=== PATIENT | female | born 1960 | race Caucasian/White ===

== ENCOUNTER 2019-11-04 10:24 | Observation (INO) | payer OTHER, SELFPAY ==
[2019-11-04] VITALS (8 sets, daily range): BP systolic 114–146; BP diastolic 59–92; PULSE 70–90; RESP 14–18; TEMP 36.2–36.9; O2SAT 96–100; BMI 34.2; BMI 34.0
--- NOTE | 2019-11-04 10:48 | EKG12_ITS ---
Test Reason : CP Blood Pressure : / mmHG Vent. Rate : 070 BPM Atrial Rate : 070 BPM P-R Int : 166 ms QRS Dur : 092 ms QT Int : 402 ms P-R-T Axes : 019 044 004 degrees QTc Int : 434 ms Normal sinus rhythm ST & T wave abnormality, consider inferior ischemia Abnormal ECG Confirmed by LETA SPEARS ([id number]), scientific publications editor RENATA MORALES ([id number]) on 11/06/2019 7:39:51 AM Referred By: JEANA Confirmed By:LETA SPEARS
--- NOTE | 2019-11-04 10:49 | ED.VIS.CHEST ---
History of Present Illness Chief Complaint: Chest Pain Informant: Patient Onset: Today Activity at onset: Light Activity - walking in a store Timing: Intermittent - x1, Lasts - 30 min or so Quality: Tightness Location: Substernal - and pain in left jaw Current Severity: Gone - chest and jaw discomfort resolved together Maximum Severity: Moderate Narrative: Feeds throughout the day yesterday she was having intermittent random episodes of left jaw pain that would last 5 or 10 minutes, she cannot remember if they were exertional or not, but she had multiple episodes. She had no other symptoms with it that she can recall. Today she was walking in a store, she felt lightheaded, weak, nonpleuritic chest tightness, and the discomfort in her left jaw that she had intermittently yesterday. She did not feel her heart racing, she was not diaphoretic or nauseated or dyspneic. She did not pass out. She came to the emergency department, which was very close to the store, and soon after arrival here the discomfort resolved. She has no known cardiac history. She does not take any medications except for PPI for a hiatal hernia. She is a non-smoker and does not use cocaine. She has never had a stress test on her heart that she knows of for any reason. 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 Prior Similar Symptoms: No - Past Medical History (1) Hiatal hernia Status: Chronic Past Medical History - Allergies and Home Meds Allergies/Adverse Reactions: Allergies No Known Allergies Allergy (Verified 11/04/19 10:28) Primary Care Physician: Rohan Brown MD [Primary Care Provider] - Lives: Spouse/ Significant Other Smoking Status: Never smoker Drugs: None Review of Systems General: Reports: Malaise. Denies: Chills, Fever, Sweats Eyes: Denies: Visual changes - bilaterally, Diplopia ENT: Reports: - - Left jaw/submandibular pain. Denies: Bilateral ear pain, Rhinorrhea, Sore throat Cardiovascular: Reports: Chest pain. Denies: Palpitations Respiratory: Denies: Dyspnea, Cough, Dyspnea on exertion Gastrointestinal: Denies: Abdominal pain, Nausea, Vomiting, Diarrhea, Melena, Hematochezia Genitourinary: Denies: Dysuria, Hematuria, Frequency Musculoskeletal: Reports: Neck pain - Left jaw. Denies: Back pain, Swelling, Extremity Pain Skin: Denies: Rash, Wounds Neurological: Denies: Headache, Weakness, Numbness Physical Exam Vital Signs/Narrative: Vital Signs Temp Pulse Resp BP Pulse Ox 11/04/19 10:25 97.5 F L 90 18 142/92 H 100 Inital Vital Signs reviewed: Yes General: Well nourished, Well developed, No Acute Distress Head: Normocephalic, Atraumatic Eyes: Perrl, EOMI ENT: Moist mucous membranes, No rhinorrhea, - - Normal intraoral exam. No trismus, no parotid tenderness, no abscess. Neck: Supple, No lymphadenopathy, No JVD, - - Mildly tender left submandibular area, no palpable lump, lymphadenopathy, lesion, or overlying erythema noted. Cardiovascular: Regular rate, Regular rhythm, No murmurs, - - Equal bilateral 2+/4 radial pulses. Negative for: Tachycardia Respiratory: No distress, CTA bilaterally, Chest nontender Abdomen: Soft, Nontender, Nondistended, Normal bowel sounds Back: Nontender, Normal Inspection Extremities: Nontender, No edema. Negative for: Calf Tenderness Skin: Normal color, No rash, No Trauma Neurological: Alert, Oriented x3, Cranial nerves II-XII grossly intact, Normal Strength, Normal Sensation, Normal Gait Psychological: Normal affect, Normal Mood Diagnostic/Tx/Re-eval Impressions Chest X-Ray 11/04/19 11:05 IMPRESSION: No acute abnormality is seen. Electronically Signed: Cleveland Autumn, at 11:24 EDT , Service support , 11/04/19 11:05 Chest 1 View (Portable) [RAD] Stat Laboratory Results 11/04/19 11/04/19 10:30 10:30 WBC 5.7 RBC 4.53 Hgb 13.1 Hct 42.5 MCV 93.8 MCH 28.9 MCHC 30.8 L RDW Std Deviation 42.8 RDW Coeff of Adryan 12.4 Plt Count 230 MPV 9.6 Immature Gran % (Auto) 0.200 Neut % (Auto) 49.8 Lymph % (Auto) 35.1 Woods % (Auto) 9.9 Eos % (Auto) 3.9 Baso % (Auto) 1.1 H Absolute Neuts (auto) 2.8 Absolute Lymphs (auto) 1.99 Nucleated RBC % 0 Sodium 144 Potassium 3.4 L Chloride 110 H Carbon Dioxide 28.0 Anion Gap 6 BUN 12 Creatinine 0.59 Estim Creat Clear Calc 103.57 Est GFR (MDRD) Af Amer 133 Est GFR (MDRD) Non-Af 110 BUN/Creatinine Ratio 20.3 H Glucose 101 Calcium 9.2 Troponin I < 0.015 - Rhythm Strip Rhythm Strip: Sinus Rhythm Rate: 70 Ectopy: None - EKG Initial EKG Interpretation: Sinus Rhythm, No Acute Injury Pattern, Non-Specific ST Changes - Inferiorly, without ST elevations or depressions Treatment: Aspirin Repeat Eval: Pain Free RICARDO Risk: Severe Angina </=24 hours Score: 1 - Medical Decision Making Concerning symptoms with very light exertion, took 30 minutes to resolve, could be unstable angina. For that reason I recommend admission for provocative testing and/or continued evaluation. Will discuss with hospitalist for PCU observation. Patient is amenable to this. ED Disposition - Plan for ED Patient: Disposition: Acute Care [facility] Diagnosis: Chest pain, unspecified Referrals: Rohan Brown MD [Primary Care Provider] -
[2019-11-04 10:58] LABS: Absolute Lymphocyte Count 1.99 X10^3/uL (0.83-4.51); Absolute Neutrophil Count 2.8 X10^3/uL (2.0-7.7); Basophil# 0.06 X10^3/uL; Basophil% 1.1 % (0-1); Eosinophil# 0.22 X10^3/uL; Eosinophils% 3.9 % (0-5); Hematocrit 42.5 % (37-47); Hemoglobin 13.1 g/dL (12.0-15.0); Lymphocyte # 1.99 X10^3/ul (4.0); Lymphocyte % 35.1 % (19-41); Mean Corp Hgb Conc 30.8 g/dL (32-36); Mean Corpuscular Hgb 28.9 pg (27.0-32.0); Mean Corpuscular Volume 93.8 fL (81-99); Mean Platelet Vol. 9.6 fl (6.2-12.0); Monocyte# 0.56 X10^3/uL; Monocyte% 9.9 % (0-10); NRBC Flagged by Analyzer 0 % (0-5); Neutrophil # 2.83 X10^3/uL (2.7-7.7); Neutrophil % 49.8 % (47-70); Platelet Count 230 K/mm3 (150-450); RBC Distribution Width CV 12.4 % (11.6-14.6); RBC Distribution Width SD 42.8 fl (35.1-43.9); Red Blood Count 4.53 M/mm3 (4.2-5.4); White Blood Count 5.7 K/mm3 (4.4-11.0)
[2019-11-04] MEDS: Aspirin 81 MG TAB.CHEW 324 MG PO (10:59)
--- NOTE | 2019-11-04 11:05 | RAD_ITS ---
STUDY: X-RAY CHEST REASON FOR EXAM: Female, 59 years old. Chest pain TECHNIQUE: Single AP portable view of the chest. COMPARISON: None. FINDINGS: EKG electrodes are seen. The lungs are clear and expanded. Scattered calcified granulomas. There is no demonstrated pleural abnormality. Normal size heart. Normal mediastinum and karen. Normal visualized pulmonary arteries. Normal visualized aortic arch and descending thoracic aorta. There is a mild dextroscoliosis of the thoracic spine. Normal visualized ribs, clavicles, and shoulders. There is no demonstrated abnormality of the visualized soft tissue structures of the upper abdomen. RAD/Chest 1 View (Portable) IMPRESSION: No acute abnormality is seen. Electronically Signed: Clevelnad Leyva, at 11:24 EDT , Service support ,
[2019-11-04 11:15] LABS: Anion Gap 6 (5-15); BUN 12 mg/dL (7-18); BUN/Creat Ratio 20.3 RATIO (10-20); Calcium,Total 9.2 mg/dL (8.5-10.1); Chloride 110 mmol/L (98-107); Creatinine, Serum 0.59 mg/dL (0.55-1.02); EST Glomerular Filtration Rate 110 mL/min (>60); Est Glom Filt Rate - Afr Amer 133 mL/min (>60); Estimated Creatinine Clearance 103.57 ml/min; Glucose 101 mg/dL (74-106); Potassium 3.4 mmol/L (3.5-5.1); Sodium Level 144 mmol/L (136-145)
--- NOTE | 2019-11-04 11:35 | NURSING ---
DR ALEMAN FOR DR BARRAGAN
--- NOTE | 2019-11-04 11:37 | PCM.HP.STD ---
Problem List (1) Sarcoidosis Status: Chronic Comment: Present. Not on any treatment (2) Left lower dental caries Status: Acute (3) Chest pain, unspecified Status: Acute (4) Hiatal hernia Status: Chronic History of Present Illness Date of Admission: 11/04/19 Chief Complaint: Chest pain The patient is a 59 year old F with history of sarcoidosis, not on treatment plan mild hypersomnia on PPI came to ED left lower jaw pain and left upper chest pain. Patient had intermittent jaw pain yesterday about 6-7/8 intensity, vague in quality but not sharp. Today she felt more frequent along with left upper chest pain which was 3-4/10 intensity, feeling heaviness/tightness with dizziness and lightheadedness. Denies shortness of breath. Patient never had cardiac issues including WA, congestive heart failure or A. fib. Never had a stress test, echo or cardiac cath. Does not have first-degree family relative of WA/stroke She also history of mild sinus headache. In ED, vitals blood pressur and heart rate is controlled. EKG shows normal sinus rhythm with nonspecific ST-T abnormality, T inversion in lead III at 70 bpm. No change from previous EKG of April 2016. Basic labs done in the ER shows negative troponin, K3.4. Past Medical History Past Medical History (Chronic Problems): Chronic Problems Hiatal hernia (Chronic) Sarcoidosis (Chronic) Present. Not on any treatment Allergies No Known Allergies Allergy (Verified 11/04/19 10:28) Home Medications: Ambulatory Orders Medication Instructions Recorded Omeprazole [Prilosec] 10 mg PO DAILY 11/04/19 Lives: Spouse/ Significant Other Smoking Status: Never smoker Drugs: None - *Family History Paternal History Items: Cancer - of cancer Review of Systems Constitutional: Denies: Chills, Fever, Weight Change HEENT: Reports: Sinus Congestion, - - Left jaw pain. Denies: Head Aches, Sinus Drainage Cardiovascular: Reports: Chest Pain, Chest Tightness. Denies: Palpitations Respiratory: Denies: Cough, Shortness of breath at rest, Sputum production Gastrointestinal: Denies: Abdominal Pain, Nausea, Vomiting Genitourinary: Denies: Dysuria, Frequency, Hematuria, Hesitancy, Nocturia, Retention, Urgency Musculoskeletal: Denies: Joint Pain, Joint Tenderness Skin: Denies: Rash, Wounds Neurological: Denies: Numbness, Tingling, Focal weakness Psychiatric: Denies: Anxiety, Depression, Homicidal Ideations, Suicidal Ideations Hematologic/ Lymphatic: Denies: Easy Bruising, Easy Bleeding VTE Information - Inpt Only VTE Present on Admission: No VTE Mechan Device Prophylaxis: None VTE Pharm Prophylaxis ordered?: Yes Patient Problems: Active and Suspected Problems Chest pain, unspecified (Acute) Left lower dental caries (Acute) - Physical Exam Vitals/I&O's: Vital Signs Temp Pulse Resp BP Pulse Ox 97.5 F L 90 18 142/92 H 100 11/04/19 10:25 11/04/19 10:25 11/04/19 10:25 11/04/19 10:25 11/04/19 10:25 Oxygen Delivery Method Room Air Weight: 225 lb 4.999 oz Body Mass Index (BMI) 34.2 General: Alert, Oriented x3, Cooperative HEENT: Atraumatic, PERRLA, EOMI, Normocephalic Oral: Dry Mucosa, - - Left lower premolar no tenderness but tooth is black seem dental cavity. No tenderness or fullness over the floor of mouth Neck: Supple, No JVD, Negative Carotid Bruits Lungs: Clear to auscultation, Normal air movement, No rhonchi, No wheeze, No rales Cardiovascular: Regular rate, Regular Rhythm, Normal S1, Normal S2, No murmurs Abdomen: Bowel Sounds Present, Soft, Non Tender, Non-Distended Extremities: No edema, Capillary Refill Less than 3 Seconds Skin: No rashes, No breakdown Musculoskeletal: No Tenderness to Palpation of Joints or Extremities Neurological: Cranial nerves II-XII grossly intact, Deep Tendon Reflexes 2+/4 and Symmetrical, Neuro grossly intact, Motor Exam 5/5 strength throughout Psych/Mental Status: Normal Affect, Appropriate Laboratory Results 11/04/19 10:30: WBC 5.7, RBC 4.53, Hgb 13.1, Hct 42.5, MCV 93.8, MCH 28.9, MCHC 30.8 L, RDW Std Deviation 42.8, RDW Coeff of Adryan 12.4, Plt Count 230, MPV 9.6, Immature Gran % (Auto) 0.200, Neut % (Auto) 49.8, Lymph % (Auto) 35.1, [place] % (Auto) 9.9, Eos % (Auto) 3.9, Baso % (Auto) 1.1 H, Absolute Neuts (auto) 2.8, Absolute Lymphs (auto) 1.99, Nucleated RBC % 0 11/04/19 10:30: Sodium 144, Potassium 3.4 L, Chloride 110 H, Carbon Dioxide 28.0, Anion Gap 6, BUN 12, Creatinine 0.59, Estim Creat Clear Calc 103.57, Est GFR (MDRD) Af Amer 133, Est GFR (MDRD) Non-Af 110, BUN/Creatinine Ratio 20.3 H, Glucose 101, Calcium 9.2, Troponin I < 0.015 Assessment/Plan All Active Problems Chest pain, unspecified (Acute) Left lower dental caries (Acute) The patient is a 59 year old F with history of sarcoidosis, not on treatment plan mild hypersomnia on PPI came to ED left lower jaw pain and left upper chest pain. EKG shows normal sinus rhythm with nonspecific ST-T abnormality, T inversion in lead III at 70 bpm. No change from previous EKG of April 2016. Basic labs done in the ER shows negative troponin, K3.4. 1. Left jaw pain, atypical chest pain rule out acute coronary syndrome: Patient is being admitted in PCU. Cycle troponin enzymes. Repeat EKG. Patient had aspirin in ER. Treadmill nuclear stress test tomorrow a.m. TSH, fasting lipid profile ordered. 2. Mild hypokalemia: Potassium being replaced. Magnesium ordered 3. Sarcoidosis: Patient was diagnosed lung and brain sarcoidosis but currently quiescent not on active medication. Patient had prednisone in the past. 4. Mild hiatus hernia: Continue PPI 5. DVT prophylaxis: Lovenox 40 mg subcu daily Living will/advanced directive/end of life care: Patient does not have living will or advanced directive. After discussion of procedures involved with full code, DNR CC arrest and DNR CC, the patient opted for full code. Patient does want artificial life support including intubation, tube feed, ventilator and/chest compression, central venous catheter, vasopressor and DC shock if needed Total time spent in [id number] encounter in discussion of advanced directive 16 minutes. OBSV E&M: 39880 Initial observation care L3 Procedures: 85943 Advncd Care Plan 30 Min
--- NOTE | 2019-11-04 11:40 | NURSING ---
PCU ATYPICAL CP ASH
--- NOTE | 2019-11-04 12:25 | EKG12_ITS ---
Test Reason : ADMISSION Blood Pressure : / mmHG Vent. Rate : 067 BPM Atrial Rate : 067 BPM P-R Int : 186 ms QRS Dur : 102 ms QT Int : 408 ms P-R-T Axes : 018 050 001 degrees QTc Int : 431 ms Normal sinus rhythm Normal ECG When compared with ECG of 17-MAY-2016 11:48, No significant change was found Confirmed by JA STRANGE, PRIMITIVO ([id number]), tape editor RENATA MORALES ([id number]) on 11/11/2019 9:50:08 AM Referred By: ASH Confirmed By:PRIMITIVO PERES MD
[2019-11-04] MEDS: 0.9% Normal Saline 1,000 ML 100 ML IV (12:57)
[2019-11-04] MEDS: Enoxaparin 40 MG/0.4 ML Syringe SC (13:06)
[2019-11-04 13:07] LABS: Magnesium 2.1 mg/dL (1.6-2.6)
[2019-11-04] MEDS: Famotidine 20 MG Tablet PO (21:43)
[2019-11-04] MEDS: Atorvastatin Calcium 40 MG Tablet PO (21:44)
[2019-11-05] VITALS (7 sets, daily range): BP systolic 107–134; BP diastolic 65–85; PULSE 69–89; RESP 10–18; TEMP 36.6–36.7; O2SAT 93–100
[2019-11-05] MEDS: Aspirin E.C. 81 MG Tablet PO (05:44)
--- NOTE | 2019-11-05 05:55 | EKG12_ITS ---
Test Reason : AM EKG Blood Pressure : / mmHG Vent. Rate : 077 BPM Atrial Rate : 077 BPM P-R Int : 222 ms QRS Dur : 102 ms QT Int : 392 ms P-R-T Axes : 030 063 017 degrees QTc Int : 443 ms Sinus rhythm with sinus arrhythmia with 1st degree A-V block Nonspecific ST abnormality Abnormal ECG When compared with ECG of 04-NOV-2019 13:03, MANUAL COMPARISON REQUIRED, DATA IS UNCONFIRMED Confirmed by JA STRANGE, PRIMITIVO ([id number]), marketing editor RENATA MORALES ([id number]) on 11/11/2019 9:48:17 AM Referred By: ASH Confirmed By:PRIMITIVO PERES MD
[2019-11-05 06:24] LABS: Anion Gap 5 (5-15); BUN 10 mg/dL (7-18); BUN/Creat Ratio 20.9 RATIO (10-20); Calcium,Total 8.5 mg/dL (8.5-10.1); Chloride 115 mmol/L (98-107); Cholesterol 150 mg/dL (200); Creatinine, Serum 0.48 mg/dL (0.55-1.02); EST Glomerular Filtration Rate 141 mL/min (>60); Est Glom Filt Rate - Afr Amer 170 mL/min (>60); Glucose 93 mg/dL (74-106); High Density Lipoprotein 50 mg/dL; Potassium 3.9 mmol/L (3.5-5.1); Sodium Level 146 mmol/L (136-145); Thyroid Stim Hormone (TSH) 1.51 uIU/mL (0.358-3.74); Triglycerides 74 mg/dL; Very Low Density Lipoprotein 15 mg/dL (5-40)
[2019-11-05] MEDS: Pantoprazole Sodium 20 MG Tablet PO (11:56)
[2019-11-05] MEDS: Famotidine 20 MG Tablet PO (11:56)
--- NOTE | 2019-11-05 12:49 | DCINST_ITS ---
- Discharge Diagnoses Current Active Problems: Current Active and Chronic Problems Chest pain, unspecified (Acute) Sarcoidosis (Chronic) Present. Not on any treatment Left lower dental caries (Acute) You will use the following diet at home:: No restrictions Discharge Activity: Return to Normal Activity Call your doctor if you observe: Shortness of breath, Dizziness, Fainting spells, Chest pain Allergies/Adverse Reactions: Allergies No Known Allergies Allergy (Verified 11/04/19 10:28) Medications to take at Discharge B-12 1 t PO DAILY 11/04/19 K2 Plus D3 Tablet 1 tab PO DAILY 11/04/19 Omeprazole [Prilosec] 10 mg PO DAILY 11/04/19 Primary Care Physician: Rohan Brown MD [Primary Care Provider] - Please follow up with your Primary Care Physician in: 1 Week Test Results: Test results from this visit will be discussed in further detail at your follow- up appointment, if applicable. Proposed Discharge Date: 11/05/19
--- NOTE | 2019-11-05 12:53 | DS.PCM_ITS ---
<Shannan Ruiz - Last Filed: 11/05/19 15:00> Discharge Date and Diagnosis Date of Admission: 11/04/19 Date of Discharge: 11/05/19 - Primary Discharge Diagnosis Acute Problems: Active Problems 1. Atypical chest pain, ACS ruled out 2. Sarcoidosis 3. Mild hiatal hernia - Secondary Discharge Diagnosis Chronic Problems: Chronic Problems Hiatal hernia (Chronic) Sarcoidosis (Chronic) Present. Not on any treatment Hospital Course and Treatment Imaging Results: Diagnostic Data Chest X-Ray 11/04/19 11:05 IMPRESSION: No acute abnormality is seen. Electronically Signed: Cleveland Leyva, at 11:24 EDT , Service support , Operations: None Procedures: None Summary of Care Provided: The patient is a 59 year old F admitted 11/04/2019 due to chest pain. 1. Atypical chest pain, ACS ruled out-EKG without ST-T changes. Troponin negative. Chest x-ray unremarkable. Lab work unremarkable. Orthostatic vitals negative. Patient underwent nuclear stress test which was negative for ischemia. Follow-up with primary care physician in 1 week. 2. Sarcoidosis- stable. 3. Mild hiatal hernia/GERD- on PPI. Patient seen and examined prior to discharge. Physical assessment as noted below. Patient is stable for discharge with follow up recommendations as noted above. This patient was seen by CB Walker under the supervision of Dr. Barbour. - Physical Exam Vitals/I&O's: Vital Signs Temp Pulse Resp BP Pulse Ox 98.1 F 69 18 134/73 H 96 11/05/19 09:32 11/05/19 09:32 11/05/19 09:32 11/05/19 09:32 11/05/19 09:32 Oxygen Delivery Method Room Air Weight: 223 lb 8.78 oz Body Mass Index (BMI) 34.2 Intake and Output for Last 24 Hours 11/03/19 11/04/19 11/05/19 23:59 23:59 23:59 Intake Total 2059 240 / 240 Balance 2059 240 / 240 Laboratory Results 11/04/19 10:30: Magnesium 2.1 11/04/19 13:46: Troponin I < 0.015 11/04/19 16:20: Troponin I < 0.015 11/05/19 05:14: Sodium 146 H, Potassium 3.9, Chloride 115 H, Carbon Dioxide 26.0, Anion Gap 5, BUN 10, Creatinine 0.48 L, Estim Creat Clear Calc 127.30, Est GFR (MDRD) Af Amer 170, Est GFR (MDRD) Non-Af 141, BUN/Creatinine Ratio 20.9 H, Glucose 93, Calcium 8.5, Triglycerides 74, Cholesterol 150, LDL Cholesterol 85, VLDL Cholesterol 15, HDL Cholesterol 50, TSH 1.51 Current Medications Acetaminophen (Tylenol) 650 mg PO Q6H PRN PRN PRN Reason: Pain Score 1-10/Temp > 100.7 F Al Hydroxide/Mg Hydroxide (Mylanta Ii) 30 ml PO Q6H PRN PRN PRN Reason: Gastric Burning Albuterol Sulfate (Ventolin Aerosols) 2.5 mg INHALATION Q2H PRN PRN PRN Reason: SOB/Wheezing Aspirin (Ecotrin) 81 mg PO DAILY@0800 [facility] Last Admin: 11/05/19 05:44 Dose: 81 mg Documented by: Atorvastatin Calcium (Lipitor) 40 mg PO QHS [facility] Last Admin: 11/04/19 21:44 Dose: 40 mg Documented by: Dextrose (D50w Syringe) 0 gm IV X1 PRN; Protocol PRN Reason: Hypoglycemia Enoxaparin Sodium (Lovenox) 40 mg SC DAILY [facility] Last Admin: 11/05/19 11:45 Dose: Not Given Documented by: Famotidine (Pepcid) 20 mg PO BID [facility] Last Admin: 11/05/19 11:56 Dose: 20 mg Documented by: Glucagon () 1 mg IM .X1 PRN PRN Reason: Hypoglycemia Sodium Chloride () 250 mls @ 15 mls/hr IV .[id number] PRN PRN Reason: Saline Flush Sodium Chloride () 250 mls @ 15 mls/hr IV .[id number] PRN PRN Reason: Additional IVPB Infusion Melatonin (Melatonin) 3 mg PO QHS PRN PRN PRN Reason: INSOMNIA Morphine Sulfate () 2 mg IV Q3H PRN PRN PRN Reason: Pain Score 6-10/10 Nitroglycerin (Nitrostat) 0.4 mg SUBLINGUAL Q5M PRN PRN Reason: CARDIAC/CHEST PAIN Ondansetron HCl (Zofran) 4 mg IV Q8H PRN PRN PRN Reason: NAUSEA/VOMITING Oxycodone HCl (Oxyir) 5 mg PO Q4H PRN PRN PRN Reason: Pain Score 4-5/10 Pantoprazole Sodium (Protonix) 20 mg PO DAILY [facility] Last Admin: 11/05/19 11:56 Dose: 20 mg Documented by: Senna/Docusate Sodium (Senokot-S, Gladis-Colace) 2 tablet PO BID PRN PRN PRN Reason: Constipation Sodium Chloride () 10 - 40 ml IV UD PRN PRN Reason: SALINE FLUSH Discharge Diet: No Restrictions Discharge Activity: Return to Normal Activity Call your doctor if you observe: Shortness of breath, Dizziness, Fainting spells, Chest pain Home Medications: Medications to take at Discharge B-12 1 t PO DAILY 11/04/19 K2 Plus D3 Tablet 1 tab PO DAILY 11/04/19 Omeprazole [Prilosec] 10 mg PO DAILY 11/04/19 Metoprolol(XL)Succ [Toprol Xl (Beta Marvel)] 12.5 mg PO DAILY #30 tab 11/05/19 Following Prescrptions Were Given to Patient: Metoprolol(XL)Succ [Toprol Xl (Beta Marvel)] 12.5 mg PO DAILY #30 tab Transmission Status: Received by [facility] Primary Care Physician: Rohan Brown MD [Primary Care Provider] - Please follow up with your Primary Care Physician in: 1 Week Disposition: Home Minutes spent on discharge:: 35 Patient Condition:: Stable Medical Necessity - Tobacco Use Smoking Status: Never smoker Meaningful Use Info Meaningful Use Diagnoses (Choose all that apply): None applicable <Urbano Barbour - Last Filed: 11/05/19 15:26> Discharge Date and Diagnosis - Secondary Discharge Diagnosis Chronic Problems: Chronic Problems Hiatal hernia (Chronic) Sarcoidosis (Chronic) Present. Not on any treatment Hospital Course and Treatment Operations: None Procedures: None Summary of Care Provided: Patient seen and examined independently. Data reviewed. I agree with the above note by the nurse practitioner. The patient is a 59 year old F presents with chest pain. Patient underwent a cardiac work-up, clean EKG, troponins and a stress test. Patient underwent a nuclear stress test performed on the . That came back normal. Ejection fraction was 70%. Patient discharged home in stable condition. [] - Physical Exam Vitals/I&O's: Vital Signs Temp Pulse Resp BP Pulse Ox 36.6 C 78 16 112/70 100 11/05/19 13:12 11/05/19 15:01 11/05/19 13:12 11/05/19 13:12 11/05/19 13:12 Oxygen Delivery Method Room Air Weight: 101.4 kg Body Mass Index (BMI) 34.2 Orthostatic Vital Signs Start: 11/05/19 13:12 Freq: q24h Status: Active Protocol: Activity Type Activity Date Activity User E-Sign Co-Sign Detail Recorded Client Recorded Date Recorded By Document 11/05/19 13:12 AMG [id number] 11/05/19 13:13 AMG 11/05/19 13:12 Orthostatic Vitals Standing -Blood Pressure (90/60-120/80) 126/85 H -Extremity Use Left Arm -Pulse Rate (60-100) 89 Sitting -Blood Pressure (90/60-120/80) 130/84 H -Extremity Use Left Arm -Pulse Rate (60-100) 80 Lying -Blood Pressure (90/60-120/80) 112/70 -Extremity Use Left Arm -Pulse Rate (60-100) 76 Intake and Output for Last 24 Hours 11/03/19 11/04/19 11/05/19 23:59 23:59 23:59 Intake Total 2059 240 / 240 Balance 2059 240 / 240 General: Alert, No apparent distress HEENT: Atraumatic, Normocephalic Oral: Moist Mucosa, No Gingival or Mucosal Lesions/ Ulcerations Lungs: Clear to auscultation, Normal air movement, No rhonchi, No wheeze Cardiovascular: Regular rate, Regular Rhythm, Normal S1, Normal S2 Laboratory Results 11/04/19 16:20: Troponin I < 0.015 11/05/19 05:14: Sodium 146 H, Potassium 3.9, Chloride 115 H, Carbon Dioxide 26.0, Anion Gap 5, BUN 10, Creatinine 0.48 L, Estim Creat Clear Calc 127.30, Est GFR (MDRD) Af Amer 170, Est GFR (MDRD) Non-Af 141, BUN/Creatinine Ratio 20.9 H, Glucose 93, Calcium 8.5, Triglycerides 74, Cholesterol 150, LDL Cholesterol 85, VLDL Cholesterol 15, HDL Cholesterol 50, TSH 1.51 Discharge Diet: No Restrictions Discharge Activity: Return to Normal Activity Call your doctor if you observe: Shortness of breath, Dizziness, Fainting spells, Chest pain Disposition: Home Minutes spent on discharge:: 35 Patient Condition:: Stable Medical Necessity - Tobacco Use Smoking Status: Never smoker OBSV E&M: 29220 Observation care discharge
--- NOTE | 2019-11-05 13:12 | STRESSREP ---
Stress Test Report Date: 11/05/2019 Procedure: Exercise tolerance test/imaging study Indications: Chest pain Consent: Per the patient Procedure: The patient exercised on a Alex protocol for 3 minutes and 46 seconds achieving a peak heart rate of 226 bpm (140 % predicted maximal heart rate) with a peak blood pressure 156/90 mmHg and a peak MET capacity of 5.5 METs. The baseline ECG demonstrated normal sinus rhythm, occasional PVCs. The peak exercise ECG demonstrated sinus tachycardia with runs of atrial tachycardia, about [address] depression in the inferior and lateral leads. EKG during recovery revealed no significant ischemic changes During peak exercise in addition to the sinus tachycardia patient appeared to be having short runs of what appears to be atrial tachycardia. Patient had significant lightheadedness at this time. The functional capacity was considered decreased for age. There was [no complaint of chest discomfort during exercise or recovery]. The examination was discontinued secondary to lightheadedness. Impression: 1. Technically adequate (percent predicted maximal heart rate greater than 85%) exercise tolerance test 2. Stress test is negative for exercise-induced EKG changes of ischemia 3. The test test is negative for exercise-induced chest pain. However with peak exercise patient appeared to have short runs of atrial tachycardia associated with dizziness. 4. Functional capacity is decreased for age 5. Nuclear images pending Myocardial perfusion imaging study: Technique: The patient was injected with [] mCi of technetium 99m Cardiolite and subsequently rest SPECT Cardiolite nuclear imaging was obtained in the horizontal long, vertical long, and short axis views. The patient exercised on a Alex protocol. Please see above for details. The patient was injected with [] mCi of technetium 99m Cardiolite and subsequently stress SPECT Cardiolite nuclear imaging was obtained in the horizontal long, vertical long, and short axis views. A gated Cardiolite study at peak stress was obtained. Interpretation: Rest and stress SPECT Cardiolite nuclear imaging status post realignment, normalization, and attenuation correction, demonstrates overall normal myocardial radioisotope uptake. The gated Cardiolite study demonstrates no significant regional wall motion abnormalities. The reported LVEF is greater than 70 %. Impression: 1. There is no evidence of significant ischemia or infarction. Please see above regarding short runs of atrial tachycardia associated with dizziness during peak exercise. 2. The gated Cardiolite study reports an LVEF of greater than 70 %. This note was generated with Dragon dictation software. It may contain incorrect words, spelling, and punctuation that were not noted in checking the note before signing.
== END 2019-11-05 12:50 | disposition home or self-care (01) ==
LOC: ED 11:44 → PCU 11:46
PROVIDERS: Admitting Provider Internal Medicine; Emergency Provider Emergency Medicine; PCP Family Medicine
DX: R07.89 Other chest pain (principal); D86.9 Sarcoidosis, unspecified; K44.9 Diaphragmatic hernia without obstruction or gangrene; K02.9 Dental caries, unspecified; E87.6 Hypokalemia; R68.84 Jaw pain; K21.9 Gastro-esophageal reflux disease without esophagitis; I47.1 Supraventricular tachycardia; R42 Dizziness and giddiness; R94.31 Abnormal electrocardiogram [ECG] [EKG]; Z79.899 Other long term (current) drug therapy
CPT/HCPCS: 36415; 71045; 78452; 80048; 80061; 83735; 84443; 84484; 85025; 93005; 93017; 96360; 96372; 99218; 99285; A9500; J7030; A4216; G0378

== ENCOUNTER → 2020-01-09 10:50 | Outpatient (CLI) | payer BC, SELFPAY ==
[2019-12-25 10:30] VITALS: BMI 35.9
--- NOTE | 2020-01-09 10:52 | ECHOD_ITS ---
Reason For Study: Chest pain Procedure This was a 2D Doppler, Color Flow transthoracic echocardiogram. The exam was of adequate technical quality. Exam performed in department. Left Ventricle Normal LV size. Left ventricular systolic function is normal. The estimated ejection fraction is 60 %. Transmitral doppler flow suggestive of impaired relaxation of left ventricle. No regional wall motion abnormalities noted. Right Ventricle Normal size and thickness. Normal systolic function. Atria The left atrium is mildly enlarged. Normal right atrium. Prominent eustachian valve. No doppler evidence for ASD. Mitral Valve There is no mitral annular calcification. Equivocal mitral valve prolapse. Mild (1+) mitral valve insufficiency. Tricuspid Valve Normal tricuspid valve. Mild tricuspid valve insufficiency. Right ventricular systolic pressure estimated to be 25 mmHg. Aortic Valve Trisinus/trileaflet aortic valve. Normal aortic valve. Pulmonic Valve The pulmonic valve is not well visualized. Mild (1+) pulmonic valve insufficiency. Great Vessels Normal sized aortic root. Pericardium/Pleural No pericardial effusion. MMode/2D Measurements & Calculations LVIDd: 4.2 cm IVSd: 0.97 cm Ao root diam: 3.6 cm LVIDs: 1.9 cm LVPWd: 0.80 cm RVDd: 3.4 cm FS: 53.9 % LAV(MOD-bp): 69.7 ml LA A4 area: 20.8 cm2 LA dimension(2D): 3.5 cm LAV(MOD-bp) Indexed: 33.5 ml/m2 LAV(MOD-sp2): 70.3 ml LAV(MOD-sp4): 65.3 ml RA A4 area: 16.1 cm2 Doppler Measurements & Calculations MV E max oseas: 83.7 cm/sec Lat Peak E' Oseas: 12.0 cm/sec Med Peak E' Oseas: 8.7 cm/sec MV A max oseas: 91.8 cm/sec E/E' lat: 7.0 E/E' med: 9.7 MV E/A: 0.91 Ao V2 max: 127.4 cm/sec LV V1 max: 114.8 cm/sec PA V2 max: 118.3 cm/sec Ao max P.5 mmHg LV V1 max P.3 mmHg TR max oseas: 231.4 cm/sec TR max P.5 mmHg Interpretation Summary Left ventricular systolic function is normal. The estimated ejection fraction is 60 %. The left atrium is mildly enlarged. Prominent eustachian valve. Equivocal mitral valve prolapse. Mild (1+) mitral valve insufficiency. Mild tricuspid valve insufficiency. Mild (1+) pulmonic valve insufficiency. Right ventricular systolic pressure estimated to be 25 mmHg. Ordering Physician: oYan Hussein Referring Physician: Rohan Brown M.D. Performed By: Micaela Jain RDCS
== END ==
PROVIDERS: PCP Family Medicine; Referring Provider Internal Medicine Cardiovascular Disease; Visit Provider Internal Medicine Cardiovascular Disease
DX: R42 Dizziness and giddiness (principal); I47.1 Supraventricular tachycardia; R07.9 Chest pain, unspecified
CPT/HCPCS: 93306

== ENCOUNTER → 2020-04-28 15:58 | Outpatient (CLI) | payer BC, SELFPAY ==
[2020-02-20 15:00] VITALS: BMI 36.8
--- NOTE | 2020-04-17 08:11 | RAD_ITS ---
HISTORY: Pre op screening. Hx of sarcoidosis per patient. ADDITIONAL HISTORY: None provided. COMPARISON: 11/04/2019 EXAMINATION/TECHNIQUE: XR Chest 2 Views Number of images including paperwork: 2 FINDINGS: LUNGS AND PLEURA: No consolidation, mass or pleural effusion. CARDIAC SILHOUETTE: Unremarkable. MEDIASTINUM AND DOUGLAS: Unremarkable. UPPER ABDOMEN: Unremarkable. SKELETON AND SOFT TISSUES: No acute findings. S-shaped thoracolumbar curvature. OTHER DEVICES AND HARDWARE: None. RAD/Chest PA and Lateral IMPRESSION: No acute cardiopulmonary abnormality. at 0017 Reported and signed by: Anjelica Wood MD Electronically Signed: Anjelica Wood MD at 0:17 EST Tel , Service support ,
[2020-04-17 08:26] LABS: Absolute Lymphocyte Count 1.54 X10^3/uL (0.83-4.51); Absolute Neutrophil Count 1.5 X10^3/uL (2.0-7.7); Basophil# 0.04 X10^3/uL; Basophil% 1.1 % (0-1); Eosinophil# 0.16 X10^3/uL; Eosinophils% 4.4 % (0-5); Hematocrit 40.6 % (37-47); Hemoglobin 12.6 g/dL (12.0-15.0); Lymphocyte # 1.54 X10^3/ul (4.0); Lymphocyte % 42.2 % (19-41); Mean Corpuscular Hgb 29.1 pg (27.0-32.0); Mean Corpuscular Volume 93.8 fL (81-99); Mean Platelet Vol. 8.8 fl (6.2-12.0); Monocyte# 0.39 X10^3/uL; Monocyte% 10.7 % (0-10); NRBC Flagged by Analyzer 0 % (0-5); Neutrophil # 1.52 X10^3/uL (2.7-7.7); Neutrophil % 41.6 % (47-70); Platelet Count 220 K/mm3 (150-450); RBC Distribution Width CV 12.5 % (11.6-14.6); RBC Distribution Width SD 43.4 fl (35.1-43.9); Red Blood Count 4.33 M/mm3 (4.2-5.4); White Blood Count 3.7 K/mm3 (4.4-11.0)
[2020-04-17 08:49] LABS: Anion Gap 3 (5-15); BUN 12 mg/dL (7-18); BUN/Creat Ratio 18.6 RATIO (10-20); Calcium,Total 9.1 mg/dL (8.5-10.1); Chloride 111 mmol/L (98-107); Creatinine, Serum 0.64 mg/dL (0.55-1.02); EST Glomerular Filtration Rate 100 mL/min (>60); Est Glom Filt Rate - Afr Amer 121 mL/min (>60); Glucose 97 mg/dL (74-106); Potassium 3.8 mmol/L (3.5-5.1); Sodium Level 142 mmol/L (136-145)
[2020-04-17 08:51] LABS: Hemoglobin A1c 5.5 % (3.8-5.6)
[2020-04-17 09:33] LABS: Prothrombin Time (Protime)PT. 12.6 SECONDS (11.7-14.9)
[2020-04-17 09:34] LABS: Partial Thromboplast Time 26.1 Seconds (24.1-36.2)
--- NOTE | 2020-04-28 16:02 | EKG12_ITS ---
Test Reason : PRE OP Blood Pressure : / mmHG Vent. Rate : 084 BPM Atrial Rate : 084 BPM P-R Int : 178 ms QRS Dur : 100 ms QT Int : 376 ms P-R-T Axes : 029 036 001 degrees QTc Int : 444 ms Normal sinus rhythm Normal ECG When compared with ECG of 05-NOV-2019 05:22, IN interval has decreased T wave inversion now evident in Inferior leads Confirmed by PETE STRANGE, ARA ([id number]), editor index DAVID ALVAREZ ([id number] on 04/29/2020 11:44:59 AM Referred By: Audie Alvarez Confirmed By:JAREK FREEMAN MD
== END ==
PROVIDERS: PCP Family Medicine; Referring Provider Podiatrist Foot & Ankle Surgery; Visit Provider Podiatrist Foot & Ankle Surgery
DX: Z01.810 Encounter for preprocedural cardiovascular examination (principal); Z11.59 Encounter for screening for other viral diseases
CPT/HCPCS: 36415; 71046; 80048; 83036; 85025; 85610; 85730; 87426; 93005; C9803

== ENCOUNTER 2021-07-04 10:54 | Emergency (ER) | payer OTHER, SELFPAY ==
[2021-07-04 10:55] VITALS: BP 155/98; PULSE 88; RESP 16; TEMP 36.1; O2SAT 100; BMI 35.2
--- NOTE | 2021-07-04 11:22 | EKG12_ITS ---
Test Reason : PALPS Blood Pressure : / mmHG Vent. Rate : 081 BPM Atrial Rate : 081 BPM P-R Int : 178 ms QRS Dur : 104 ms QT Int : 386 ms P-R-T Axes : 000 052 007 degrees QTc Int : 448 ms Normal sinus rhythm Nonspecific T wave abnormality Abnormal ECG Confirmed by NARGIS STRANGE, IVÁN ([id number]), book or script editor RENATA MORALES ([id number]) on 07/05/2021 11:32:54 AM Referred By: NAZIA Confirmed By:IVÁN BARILLAS MD
--- NOTE | 2021-07-04 11:30 | EX.ED.DYSGE1 ---
HPI History of Present Illness Chief Complaint: Palpitations Informant: patient Onset/Context/Timing Onset: Yesterday Context: Gradual Onset Timing: Waxes and wanes Current Severity: Mild Maximum Severity: Moderate Narrative Narrative: Patient present secondary to palpitations. She is a history of atrial tachycardia that was diagnosed in 2019. She is currently on low-dose metoprolol. Patient states that she will intermittently have palpitations but usually resolve rather quickly. Yesterday she had an episode that seem to last longer than normal and even into this morning. She did not check her pulse rate during these episodes. Nurse in triage notes the patient's heart rate went from 115 down to 88 when observing heart rate on the pulse oximeter. Patient reports having some intermittent twinges of pain in her left chest as well as behind her left ear. She did have a stress test in 2019 that was unremarkable. She also had a 30-day event monitor that was unremarkable. [facility] Medical History Atrial tachycardia Blepharitis of right lower eyelid Chest pain, unspecified Conjunctivitis, right eye Hiatal hernia Left lower dental caries Sarcoidosis Sinus tachycardia Home Medications omeprazole 10 mg PO DAILY 11/04/19 [History Last Taken 11/04/19] metoprolol succinate 25 mg tablet,extended release 24 hr 12.5 mg PO DAILY #45 tablet 09/06/20 [Rx Last Taken Unknown] multivitamin 1 tab PO DAILY 02/09/21 [History Last Taken Unknown] tobramycin 0.3 % eye drops 1 drp OPHTHALMIC (EYE) Q2H #5 ml 04/25/21 [Rx Last Taken Unknown] potassium chloride [K-Tab] 20 meq PO BID #10 tab 07/04/21 [Rx Last Taken Unknown] Allergy/AdvReac Type Severity Reaction Status Date / Time No Known Allergies Allergy Verified 07/04/21 10:57 Surgical History History of foot surgery (~04/2020) History of hysterectomy Social History Smoking Status: Never smoker alcohol intake: never substance use type: does not use caffeine: Yes Type: coffee Number of servings: 1 ROS ROS ED Constitutional Constitutional ED: Denies chills or fever(s) Eyes Eyes: Denies change in vision ENT ENT ED: Denies sore throat Cardiovascular Cardiovascular: Reports chest pain and palpitations Respiratory/Chest Respiratory/Chest: Denies cough or dyspnea Gastrointestinal Gastrointestinal: Denies abdominal pain, nausea or vomiting Genitourinary Genitourinary ED: Denies dysuria Musculoskeletal Musculoskeletal: Denies back pain Integumentary Denies rash Neurologic Neurologic: Denies headache(s) or weakness Allergic/Immunologic Allergic/Immunologic ED: Denies urticaria EXAM Physical Exam Const Vital Signs: 07/04/21 10:55 07/04/21 11:15 07/04/21 12:33 Temperature 97.0 F L Temperature Source Temporal Pulse Rate 88 79 Respiratory Rate 16 18 Respiratory Effort Normal Non-Labored Blood Pressure 155/98 H Blood Pressure Mean 117 Pulse Ox 100 95 Oxygen Delivery Method Room Air Room Air Positive well nourished and well developed General Appearance ED: well developed HEENT Reports moist mucous membranes Eyes PERRL and EOMs intact bilaterally Neck supple Chest Wall inspection of chest normal and palpation of chest normal Resp normal respiratory effort and clear to auscultation bilaterally Cardio regular rate and regular rhythm GI normal to inspection, nondistended, normoactive bowel sounds and non-tender Palpation: soft Extremity normal to inspection Neuro oriented x3 Sensorium / Orientation: alert Psych mental status grossly normal Skin no rashes or lesions noted MDM MDM MDM Narrative Medical decision making narrative: EKG, lab work, chest x-ray obtained. Lab Data Attestation: I reviewed the patient's lab results. Labs: Laboratory Results - last 24 hr 07/04/21 07/04/21 11:07 11:07 WBC 4.4 RBC 4.61 Hgb 13.6 Hct 42.3 MCV 91.8 MCH 29.5 MCHC 32.2 RDW Std Deviation 44.5 H RDW Coeff of Adryan 13.1 Plt Count 235 MPV 9.3 Immature Gran % (Auto) 0.500 Neut % (Auto) 38.8 L Lymph % (Auto) 44.2 H [place] % (Auto) 11.2 H Eos % (Auto) 3.9 Baso % (Auto) 1.4 H Absolute Neuts (auto) 1.7 L Absolute Lymphs (auto) 1.93 Nucleated RBC % 0 Sodium 142 Potassium 3.1 L Chloride 108 H Carbon Dioxide 30.0 Anion Gap 4 L BUN 13 Creatinine 0.72 Estim Creat Clear Calc 79.79 Est GFR (MDRD) Af Amer 106 Est GFR (MDRD) Non-Af 88 BUN/Creatinine Ratio 18.1 Glucose 100 Calcium 9.2 Troponin I High Sens 6 TSH 1.25 Radiography Chest X-Ray - ED: 1 View, Read by ED Physician, Normal, Heart, Lungs and Mediastinum Diagnostic Testing: Clinical Impression(s) from Imaging Studies Chest X-Ray 07/04/21 11:45 IMPRESSION: No radiographic evidence of acute cardiopulmonary disease. Electronically Signed: Sridhar Ferreira MD at 12:15 EST , EKG Initial EKG: Attestation: I personally reviewed and interpreted this EKG as follows: Interpretation: Sinus Rhythm (Sinus 81 with no acute ischemia. T inversion noted in 3 and aVF, unchanged from prior.) Treatment and Re-Evaluation Comments:: On repeat evaluation patient resting comfortably. Heart rate is better the 70s and 80s throughout her ED stay. Lab work is reviewed and does reveal low potassium at 3.1. Troponin and TSH are normal. Patient is given 40 milliequivalents of potassium replacement here will be given 5 additional days at home. 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 Return instructions provided. Discharge Plan Triage Chief Complaint: Palpitations ED Provider: Mel Macdonald Dx/Rx/DC Orders Clinical Impression: Palpitations, Hypokalemia Instructions: ED Hypokalemia, ED Palpitations Prescriptions: New potassium chloride [K-Tab] 20 mEq tablet extended release 20 meq PO BID Qty: 10 RF: 0 No Action multivitamin Tablet 1 tab PO DAILY RF: 0 tobramycin [Tobrex] 0.3 % drops 1 drp ophthalmic (eye) Q2H Qty: 5 RF: 0 omeprazole 10 MG capsule 10 mg PO DAILY RF: 0 metoprolol succinate 25 mg tablet extended release 24 hr 12.5 mg PO DAILY Qty: 45 RF: 3 Primary Care Provider: Rohan Brown Referrals: Rohan Brown MD [Primary Care Provider] - Yoan Hussein MD [STAFF PHYSICIAN] - 10-14 Days if not better Disposition Disposition: Home, Self Care
[2021-07-04 11:35] LABS: Absolute Lymphocyte Count 1.93 X10^3/uL (0.83-4.51); Absolute Neutrophil Count 1.7 X10^3/uL (2.0-7.7); Basophil# 0.06 X10^3/uL; Basophil% 1.4 % (0-1); Eosinophil# 0.17 X10^3/uL; Eosinophils% 3.9 % (0-5); Hematocrit 42.3 % (37-47); Hemoglobin 13.6 g/dL (12.0-15.0); Lymphocyte # 1.93 X10^3/ul (0.83-4.51); Lymphocyte % 44.2 % (19-41); Mean Corp Hgb Conc 32.2 g/dL (32-36); Mean Corpuscular Hgb 29.5 pg (27.0-32.0); Mean Corpuscular Volume 91.8 fL (81-99); Mean Platelet Vol. 9.3 fl (6.2-12.0); Monocyte# 0.49 X10^3/uL; Monocyte% 11.2 % (0-10); NRBC Flagged by Analyzer 0 % (0-5); Neutrophil % 38.8 % (47-70); Platelet Count 235 K/mm3 (150-450); RBC Distribution Width CV 13.1 % (11.6-14.6); RBC Distribution Width SD 44.5 fl (35.1-43.9); Red Blood Count 4.61 M/mm3 (4.2-5.4); White Blood Count 4.4 K/mm3 (4.4-11.0)
--- NOTE | 2021-07-04 11:45 | RAD_ITS ---
EXAM: XR CHEST, 1 VIEW CLINICAL INDICATION: Chest pain. TECHNIQUE: Frontal view of the chest. This report was created using [employer] report generation technology. COMPARISON: None. FINDINGS: LUNGS AND PLEURAL SPACES: Unremarkable. No consolidation or edema. No pneumothorax. No effusion. HEART: Unremarkable. Cardiac silhouette not enlarged. MEDIASTINUM: Central airways and mediastinal contour are unremarkable. BONES/JOINTS: Unremarkable. SOFT TISSUES: Unremarkable. RAD/Chest 1 View (Portable) IMPRESSION: No radiographic evidence of acute cardiopulmonary disease. Electronically Signed: Sridhar Ferreira MD at 12:15 EST ,
[2021-07-04 11:55] LABS: Anion Gap 4 (5-15); BUN 13 mg/dL (7-18); BUN/Creat Ratio 18.1 RATIO (10-20); Calcium,Total 9.2 mg/dL (8.5-10.1); Chloride 108 mmol/L (98-107); Creatinine, Serum 0.72 mg/dL (0.55-1.02); EST Glomerular Filtration Rate 88 mL/min (>60); Est Glom Filt Rate - Afr Amer 106 mL/min (>60); Estimated Creatinine Clearance 79.79 ml/min; Glucose 100 mg/dL (74-106); Potassium 3.1 mmol/L (3.5-5.1); Sodium Level 142 mmol/L (136-145); Thyroid Stim Hormone (TSH) 1.25 uIU/mL (0.358-3.74); Troponin-I HS 6 pg/mL (3.0-54.0)
[2021-07-04 12:33] VITALS: PULSE 79; RESP 18; O2SAT 95
[2021-07-04] MEDS: Potassium Chloride Oral Tablet 20 MEQ 40 MEQ PO (13:12)
[2021-07-04 13:21] VITALS: BP 122/73; PULSE 72; RESP 16; TEMP 36.1
== END 2021-07-04 13:22 | disposition home or self-care (01) ==
PROVIDERS: Emergency Provider Emergency Medicine; PCP Family Medicine; Visit Provider Emergency Medicine
DX: R00.2 Palpitations (principal); E87.6 Hypokalemia; Z79.899 Other long term (current) drug therapy
CPT/HCPCS: 71045; 80048; 84443; 84484; 85025; 93005; 99284; A4216

== ENCOUNTER 2021-07-11 14:57 | Outpatient (CLI) | payer SELFPAY ==
[2021-07-11 16:47] LABS: Anion Gap 6 (5-15); BUN 17 mg/dL (7-18); Calcium,Total 9.1 mg/dL (8.5-10.1); Chloride 110 mmol/L (98-107); Creatinine, Serum 0.53 mg/dL (0.55-1.02); EST Glomerular Filtration Rate 124 mL/min (>60); Est Glom Filt Rate - Afr Amer 150 mL/min (>60); Glucose 96 mg/dL (74-106); Potassium 4.2 mmol/L (3.5-5.1); Sodium Level 141 mmol/L (136-145)
== END 2021-07-11 23:59 | disposition home or self-care (01) ==
LOC: LAB 14:58
PROVIDERS: PCP Family Medicine; Visit Provider Nurse Practitioner Gerontology
DX: E87.6 Hypokalemia (principal); R00.2 Palpitations
CPT/HCPCS: 36415; 80048; 83735

== ENCOUNTER 2021-07-20 13:40 | Outpatient (CLI) | payer SELFPAY ==
[2021-07-29 10:09] LABS: Aldosterone, Serum 5.6 ng/dL (0.0-30.0)
[2021-07-29 15:23] LABS: Renin, Plasma 0.175 ng/mL/hr (0.167-5.380)
== END 2021-07-20 23:59 | disposition home or self-care (01) ==
PROVIDERS: PCP Family Medicine; Referring Provider Nurse Practitioner Gerontology; Visit Provider Nurse Practitioner Gerontology
DX: E87.6 Hypokalemia (principal)
CPT/HCPCS: 36415; 82088; 84244

== ENCOUNTER 2021-08-09 06:53 | Outpatient (CLI) | payer SELFPAY ==
--- NOTE | 2021-08-09 06:59 | ECHOD_ITS ---
Reason For Study: MITRAL VALVE PROLAPSE Procedure This was a 2D Doppler, Color Flow transthoracic echocardiogram. The exam was of adequate technical quality. Exam performed in department. Left Ventricle Normal LV size. Left ventricular systolic function is normal. The estimated ejection fraction is 65 %. The global longitudinal strain = -20 % (normal). No evidence for diastolic dysfunction. No regional wall motion abnormalities noted. Right Ventricle Normal RV size. Normal systolic function. Atria Normal left atrium. Normal right atrium. No doppler evidence for ASD. Bubble contrast study negative for right to left interatrial shunt. Mitral Valve There is no mitral annular calcification. Mild mitral valve prolapse. Mild (1+) mitral valve insufficiency. Tricuspid Valve Normal tricuspid valve. Mild tricuspid valve insufficiency. Right ventricular systolic pressure estimated to be 28 mmHg. Aortic Valve Trisinus/trileaflet aortic valve. Normal aortic valve. Pulmonic Valve Normal pulmonic valve. Trivial pulmonic valve insufficiency. Great Vessels Normal sized aortic root. Pericardium/Pleural No pericardial effusion. Medication Performed a rapid injection of agitated mix of 9 cc saline and 1cc air to assess for atrial septal defect. MMode/2D Measurements & Calculations LVIDd: 4.0 cm IVSd: 0.90 cm Ao root diam: 3.4 cm LVIDs: 2.5 cm LVPWd: 0.79 cm RVDd: 3.1 cm FS: 36.7 % LAV(MOD-bp): 44.0 ml LVAd ap4: 26.4 cm2 SV(MOD-sp4): 49.2 ml LAV(MOD-bp) Indexed: 20.5 ml/m2 LVLd ap4: 7.4 cm LAV(MOD-sp2): 40.2 ml EDV(MOD-sp4): 76.5 ml LAV(MOD-sp4): 47.2 ml EDV(sp4-el): 80.5 ml LVAs ap4: 13.9 cm2 LVLs ap4: 5.8 cm ESV(MOD-sp4): 27.3 ml ESV(sp4-el): 28.1 ml EF(MOD-sp4): 64.3 % EF(sp4-el): 65.0 % SV(sp4-el): 52.3 ml LA A4 area: 18.1 cm2 LA dimension(2D): 3.2 cm RA A4 area: 14.3 cm2 Time Measurements MV dec time: 0.12 sec Doppler Measurements & Calculations MV E max oseas: 62.1 cm/sec Lat Peak E' Oseas: 8.5 cm/sec Med Peak E' Oseas: 6.0 cm/sec MV A max oseas: 99.9 cm/sec E/E' lat: 7.3 E/E' med: 10.3 MV E/A: 0.62 Ao V2 max: 122.6 cm/sec LV V1 max: 126.6 cm/sec PA V2 max: 122.1 cm/sec Ao max P.0 mmHg LV V1 max P.4 mmHg TR max oseas: 250.3 cm/sec TR max P.1 mmHg ECHO/Echo Complete Interpretation Summary Left ventricular systolic function is normal. The estimated ejection fraction is 65 %. The global longitudinal strain = -20 % (normal). Mild mitral valve prolapse. Mild (1+) mitral valve insufficiency. Mild tricuspid valve insufficiency. Trivial pulmonic valve insufficiency. Right ventricular systolic pressure estimated to be 28 mmHg. No evidence for diastolic dysfunction. Ordering Physician: Chau Dickson/Yoan Hussein Referring Physician: RADHAMES ACEVEDO Performed By: Jeri Carrero RDCS
--- NOTE | 2021-08-09 13:14 | STRESSREP_ITS ---
Stress Test Report Date: 08-09-2021 Procedure: Exercise tolerance test/imaging study Indications: Chest pain; abnormal ECG; tachycardia; MVP; sarcoidosis Consent: Per the patient Procedure: The patient exercised on a Alex protocol for 2 minutes and 47 seconds not completing Stage I achieving a peak heart rate of 173 bpm (108% predicted maximal heart rate) with a peak blood pressure 162/90 mmHg and a peak MET capacity of 4 METs. The baseline ECG demonstrated normal sinus rhythm. The peak exercise ECG demonstrated somatic/motion artifact with no obvious ECG changes. There were no cardiac dysrhythmias pretest, during exercise, or recovery. The functional capacity was considered decreased. There was no complaint of chest discomfort during exercise or recovery. The examination was discontinued secondary to dyspnea. Impression: 1. Technically adequate (percent predicted maximal heart rate greater than 85%) exercise tolerance test 2. Peak exercise ECG with somatic/motion artifact with no obvious ECG changes 3. There were no cardiac dysrhythmias pretest, during exercise, or recovery 4. Nuclear images pending Myocardial perfusion imaging study: Technique: The patient was injected with 14.1 mCi of technetium 99m Cardiolite and subsequently rest SPECT Cardiolite nuclear imaging was obtained in the horizontal long, vertical long, and short axis views. The patient exercised on a Alex protocol for 2 minutes and 47 seconds not completing Stage I achieving a peak heart rate of 173 bpm (108% predicted maximal heart rate) with a peak blood pressure 162/90 mmHg and a peak MET capacity of 4 METs. The patient was injected with 44.6 mCi of technetium 99m Cardiolite and subsequently stress SPECT Cardiolite nuclear imaging was obtained in the horizontal long, vertical long, and short axis views. A gated Cardiolite study at peak stress was obtained. Interpretation: Rest and stress SPECT Cardiolite nuclear imaging status post realignment, normalization, and attenuation correction, demonstrates the appearance of relative uniform tracer uptake and myocardial perfusion appearing within normal limits. There is end systolic thickening and brightening. The gated Cardiolite study demonstrates myocardial thickening and inward wall motion. The reported LVEF is 80%. Impression: 1. Rest and stress SPECT Cardiolite nuclear imaging demonstrate relative uniform tracer uptake and myocardial perfusion appearing within normal limits. 2. The gated Cardiolite study reports an LVEF of 80%. This note was generated with [employer] software. It may contain incorrect words, spelling, and punctuation that were not noted in checking the note before signing.
== END 2021-08-09 23:59 | disposition home or self-care (01) ==
PROVIDERS: PCP Family Medicine; Referring Provider Nurse Practitioner Gerontology; Visit Provider Nurse Practitioner Gerontology
DX: R07.9 Chest pain, unspecified (principal); R00.2 Palpitations; I34.1 Nonrheumatic mitral (valve) prolapse
CPT/HCPCS: 78452; 93017; 93306; A9500; A4216

== ENCOUNTER 2021-08-16 10:00 | Outpatient (CLI) | payer SELFPAY ==
[2021-08-16 11:12] LABS: Anion Gap 1 (5-15); BUN 16 mg/dL (7-18); Calcium,Total 8.9 mg/dL (8.5-10.1); Chloride 111 mmol/L (98-107); Creatinine, Serum 0.59 mg/dL (0.55-1.02); EST Glomerular Filtration Rate 110 mL/min (>60); Est Glom Filt Rate - Afr Amer 133 mL/min (>60); Glucose 92 mg/dL (74-106); Potassium 3.9 mmol/L (3.5-5.1); Sodium Level 140 mmol/L (136-145)
== END 2021-08-16 23:59 | disposition home or self-care (01) ==
LOC: LAB 10:01
PROVIDERS: PCP Family Medicine; Referring Provider Nurse Practitioner Gerontology; Visit Provider Nurse Practitioner Gerontology
DX: E87.6 Hypokalemia (principal)
CPT/HCPCS: 36415; 80048

== ENCOUNTER 2021-08-30 08:10 | Outpatient (CLI) | payer SELFPAY ==
--- NOTE | 2021-08-31 09:50 | PFT ---
INTRODUCTION: The patient is a 61-year-old female that presents for pulmonary function studies secondary to a diagnosis of sarcoidosis. Respiratory therapy reported good patient effort. Bronchodilators were used during testing. INTERPRETATION: Forced expiration spirometry demonstrates no evidence of a large airways obstructive ventilatory defect. There was no significant response to aerosolized bronchodilators. Spirograms are of good quality and plateau normally. Body plethysmography was performed and reveals lung volumes to be within normal limits. Diffusing capacity by single breath CO is reduced at 64% of predicted. IMPRESSION: Isolated mild reduction in diffusing capacity.
== END 2021-08-30 23:59 | disposition home or self-care (01) ==
PROVIDERS: PCP Family Medicine; Referring Provider Nurse Practitioner Gerontology; Visit Provider Nurse Practitioner Gerontology
DX: D86.9 Sarcoidosis, unspecified (principal); R06.00 Dyspnea, unspecified
CPT/HCPCS: 94060; 94726; 94729

== ENCOUNTER → 2022-02-25 | Outpatient (CLI) | payer SELFPAY ==
[2022-02-25 09:45] LABS: AST(SGOT) 24 U/L (15-37); Alanine Aminotransfer ALT/SGPT 33 U/L (13-56); Albumin, Serum 3.3 g/dL (3.2-5.0); Alkaline Phosphatase 119 U/L (45-117); Bilirubin, Direct 0.12 mg/dL (0.00-0.30); Cholesterol 160 mg/dL (200); Globulin 3.4 g/dL (2.2-4.2); High Density Lipoprotein 60 mg/dL; Protein, Total 6.7 g/dL (6.4-8.2); Triglycerides 81 mg/dL; Very Low Density Lipoprotein 16 mg/dL (5-40)
== END | disposition home or self-care (01) ==
PROVIDERS: PCP Nurse Practitioner Family; Visit Provider Internal Medicine Cardiovascular Disease
DX: E78.00 Pure hypercholesterolemia, unspecified (principal)
CPT/HCPCS: 36415; 80061; 80076

== ENCOUNTER → 2022-12-07 | Outpatient (CLI) | payer BC, SELFPAY ==
--- NOTE | 2022-12-07 07:30 | MRI_ITS ---
STUDY: MRI BRAIN WITH AND WITHOUT CONTRAST (ATTENTION INTERNAL AUDITORY CANALS - I.A.C.''s) REASON FOR EXAM: Female, 62 years old. DIZZINESS , LIGHTHEADED-- ATTN. IAC TECHNIQUE: Standardized multiplanar fat and water weighted pulse sequences were obtained. IV 20cc Clariscan was administered for the contrast portion of the examination. COMPARISON: CTA head and neck with contrast 05/17/2016. FINDINGS: Normal bilateral temporal bones. Normal bilateral internal auditory canals. There is no demonstrated intracanalicular or cisternal vestibular schwannoma (acoustic neuroma). There is no enhancement of the bilateral VIIth or VIIIth cranial nerves. Normal bilateral cochlea, vestibules and semicircular canals. Normal size of the ventricles and extra-axial spaces for the patient''s age. Normal white matter tracts of the supratentorial brain. Normal bilateral basal ganglia. Normal thalami. Normal flow voids within the major intracranial circulation suggesting patency by spin echo criteria. Normal venous enhancement. There is no enhancing intra-axial or extra-axial abnormality. There is no extra-axial fluid accumulation. Normal sella turcica, pituitary gland, infundibular stalk, optic chiasm and hypothalamus. Normal tectal plate and pineal gland. Normal midbrain, romario and medulla. Normal cerebellum. Normal basal cisterns. No demonstrated orbital abnormality, within the constraints of a routine brain study. Normal visualized paranasal sinuses. Normal calvarium and skull base. Normal visualized soft tissue structures. Normal visualized upper cervical spine. MRI/Brain W/WO Contrast IMPRESSION: Normal unenhanced and enhanced MRI of the brain and bilateral internal auditory canals (I.A.C''s). Electronically Signed: Sridhar Ferreira MD at 13:07 EDT ,
[2022-12-07 08:09] LABS: CREATININE FINGERSTICK < 0.9 mg/dL (0.55-1.02); EGFR FINGERSTICK > 60.0000 mL/min (>60)
== END | disposition home or self-care (01) ==
PROVIDERS: PCP Nurse Practitioner Family; Referring Provider Otolaryngology Otolaryngology/Facial Plastic Surgery; Visit Provider Otolaryngology Otolaryngology/Facial Plastic Surgery
DX: R42 Dizziness and giddiness (principal)
CPT/HCPCS: 70553; A9575

== ENCOUNTER 2025-05-11 11:22 | Emergency (ER) | payer OTHER, MEDICARE, SELFPAY ==
[2025-05-11 11:23] VITALS: BP 145/76; PULSE 75; RESP 16; TEMP 36.3; O2SAT 100
--- NOTE | 2025-05-11 11:45 | EKG12_ITS ---
Test Reason : REPEAT-CP Blood Pressure : */* mmHG Vent. Rate : 75 BPM Atrial Rate : 75 BPM P-R Int : 208 ms QRS Dur : 94 ms QT Int : 396 ms P-R-T Axes : * 62 29 degrees QTcB Int : 442 ms Sinus rhythm with Premature supraventricular complexes Otherwise normal ECG Confirmed by JA STRANGE, PRIMITIVO ([id number]), state editor RENATA MORALES ([id number]) on 05/12/2025 1:24:47 PM Referred By: Confirmed By: PRIMITIVO PERES MD
--- NOTE | 2025-05-11 11:53 | EDS_ITS ---
HPI History of Present Illness Chief Complaint: Chest Pain Narrative Narrative: Chief complaint and HPI: 64-year-old female with past medical history of atrial tachycardia, sarcoidosis, chronic lightheadedness/near syncope presents for evaluation of near syncope episode. Patient states she has had issues with lightheadedness/near syncope for several months. She has followed up with ENT in which she had an MRI of the brain which she states was unremarkable. She is also seeing cardiology. Patient states that she had an episode of lightheadedness while walking into school today. 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 Associated symptom was tunnel vision with chest pain. She felt as if she was going to pass out. She states symptoms quickly resolved. She has been eating and drinking well. She denies any fever, chills, shortness of breath, chest pain abdominal pain, nausea, vomiting, dysuria currently. Review of systems: See HPI Medications: As listed on the chart Allergies: As listed on the chart PFSH: Per chart Vital signs: As listed on the chart. Reviewed. Physical exam: Gen: A&O x3, NAD Head: Normocephalic, atraumatic Eyes: No sclera icterus, conjunctiva clear, PERRL ENT: Moist mucous membranes Neck: Trachea midline, No JVD CV: RRR, no murmurs, no peripheral edema Resp: Lungs CTA BL, no w/r/c GI: Abd soft, non-distended, non-tender, no r/r/g Musc: Full ROM, no deformity Skin: Warm, dry Neuro: Alert, oriented, grossly intact, sensation intact Psych: Cooperative, appropriate mood and affect [facility] Medical History COVID-19 Contact with and (suspected) exposure to other viral communicable diseases Acute bronchitis, unspecified Blepharitis of right lower eyelid Conjunctivitis, right eye Sarcoidosis Atrial tachycardia Sinus tachycardia Left lower dental caries Chest pain, unspecified Hiatal hernia Home Medications ?Medication ?Instructions ?Recorded ?Last Taken ?Type omeprazole 10 mg capsule,delayed 10 mg PO DAILY 05/11/25 History release magnesium glycinate 400 mg PO DAILY 08/08/24 History metoprolol succinate 25 mg 12.5 mg (1/2 x 25 mg) PO AURELIO BROWNLEE #45 09/25/24 05/11/25 Rx tablet,extended release 24 hr tabs Lactobacillus acidophilus 10 10,000 mmu cells PO DAILY 05/11/25 05/10/25 History billion cell capsule (NewFlora) phenylephrine-acetaminophen 5 1 tab PO Q6H PRN sinus s ymptoms 05/11/25 05/11/25 History mg-325 mg tablet (Tylenol Sinus Headache) Allergy/AdvReac Type Severity Reaction Status Date / Time No Known Allergies Allergy Verified 05/11/25 11:23 Surgical History History of foot surgery (~04/2020) History of hysterectomy Social History Smoking Status: Never smoker alcohol intake: never substance use type: does not use caffeine: Yes Type: coffee Number of servings: 1 EXAM Physical Exam Const Vital Signs: 05/11/25 11:23 05/11/25 14:00 05/11/25 14:01 Temperature 97.3 F L Temperature Source Temporal Pulse Rate 75 73 Pulse Rate [Lying] 72 Pulse Rate [Sitting (for 1 minute prior to obtaining)] 75 Pulse Rate [Standing (for 1 minute prior to obtaining)] 83 Respiratory Rate 16 14 Respiratory Effort Blood Pressure 145/76 H 113/79 Blood Pressure [Lying] 119/70 Blood Pressure [Sitting (for 1 minute prior to obtaining)] 130/91 H Blood Pressure [Standing (for 1 minute prior to obtaining)] 138/74 H Blood Pressure Mean 99 90 Blood Pressure Mean [Lying] 86 Blood Pressure Mean [Sitting (for 1 minute prior to obtaining)] 104 Blood Pressure Mean [Standing (for 1 minute prior to obtaining)] 95 Pulse Ox 100 100 Oxygen Delivery Method Room Air 05/11/25 14:04 05/11/25 15:00 Temperature Temperature Source Pulse Rate 103 H Pulse Rate [Lying] Pulse Rate [Sitting (for 1 minute prior to obtaining)] Pulse Rate [Standing (for 1 minute prior to obtaining)] Respiratory Rate 18 Respiratory Effort Normal Blood Pressure 145/70 H Blood Pressure [Lying] Blood Pressure [Sitting (for 1 minute prior to obtaining)] Blood Pressure [Standing (for 1 minute prior to obtaining)] Blood Pressure Mean 95 Blood Pressure Mean [Lying] Blood Pressure Mean [Sitting (for 1 minute prior to obtaining)] Blood Pressure Mean [Standing (for 1 minute prior to obtaining)] Pulse Ox 100 Oxygen Delivery Method Room Air MDM MDM MDM Narrative Medical decision making narrative: 64-year-old female with past medical history of atrial tachycardia, sarcoidosis, chronic lightheadedness/near syncope presents for evaluation of near syncope episode. Patient states she has had issues with lightheadedness/near syncope for several months. She has followed up with ENT in which she had an MRI of the brain which she states was unremarkable. She is also seeing cardiology. On presentation, patient no acute distress. Vitals are stable. On chart review she did have an MRI of the brain in November that was unremarkable. Differential diagnosis includes but is not limited to orthostatic hypotension, electrolyte abnormality, dehydration, UTI, ACS, PE. Will obtain orthostatic vital signs. NS bolus ordered. Near syncope workup ordered. Given patient's near syncope has been ongoing for several months and she already had an unremarkable MRI of the brain and I do not think any imaging of the brain is needed at this time. Orthostatic vital signs negative. EKG and chest x-ray reviewed see below. CBC with mild leukopenia 4.2. No anemia. Platelets unremarkable. Patient has a history of this in the past. D-dimer elevated at 0.74. Cannot rule out PE. CTA chest ordered. CMP shows mild transaminitis. Patient not endorsing abdominal pain. Abdominal exam is benign. UA negative for UTI. CTA chest negative for PE. No focal pulmonary abnormality. Questionable gallstones. Magnesium unremarkable. At this point in time, no clear etiology to explain patient's near syncope. She has remained asymptomatic here in the emergency department. Her vitals are stable. Recommend following up with primary care physician. She confirmed understand the plan. EKG: Interpreted by me/EM physician: EKG shows normal sinus rhythm without any acute ischemic changes. There is artifact on the EKG. Heart rate is 69. Normal QTc. Repeat EKG was obtained due to the artifact. She has normal sinus rhythm. Heart rate 75. No acute ischemic changes. Artifact still present. Diagnostic: Interpreted by me/EM physician: Chest x-ray without pneumonia, effusion, cardiomegaly, pneumothorax. Radiology in agreement. Impression: 1. Near syncope 2. Mild transaminitis Lab Data Labs: Laboratory Results - last 24 hr 05/11/25 05/11/25 05/11/25 11:55 14:09 14:48 WBC 4.2 L RBC 4.05 L Hgb 12.1 Hct 36.7 L MCV 90.6 MCH 29.9 MCHC 33.0 RDW Std Deviation 43.3 RDW Coeff of Adryan 13.1 Plt Count 206 MPV 9.3 Immature Gran % (Auto) 0.000 Neut % (Auto) 50.5 Lymph % (Auto) 34.9 [place] % (Auto) 9.6 Eos % (Auto) 3.6 Baso % (Auto) 1.4 H Absolute Neuts (auto) 2.1 Absolute Lymphs (auto) 1.46 Nucleated RBC % 0 D-Dimer Quant (PE/DVT) 0.74 H* Sodium 141 Potassium 3.9 Chloride 108 Carbon Dioxide 23.6 Anion Gap 9 BUN 13 Creatinine 0.56 L Est GFR (MDRD) Non-Af 102 BUN/Creatinine Ratio 23.8 H Glucose 100 H Calcium 9.5 Magnesium 2.1 Total Bilirubin 0.21 AST 42 H ALT 48 H Alkaline Phosphatase 156 H Troponin T High Sens < 6 Troponin T Hi Sens 2 Hr < 6 Total Protein 6.4 Albumin 4.0 Globulin 2.4 Albumin/Globulin Ratio 1.7 Urine Color Straw Urine Clarity Clear Urine pH 6.5 Ur Specific [place] 1.010 Urine Protein Negative Urine Glucose (UA) Normal Urine Ketones 5 H Urine Occult Blood 10 H Urine Nitrite Negative Urine Bilirubin Negative Urine Urobilinogen Normal Ur Leukocyte Esterase Negative Urine RBC 0 SEEN Urine WBC 0-5 SEEN Ur Squamous Epith Cells 0 SEEN Urine Bacteria 2+ Urine Mucus 0 SEEN Radiography Diagnostic Testing: Clinical Impression(s) from Imaging Studies Chest X-Ray 05/11/25 12:08 IMPRESSION: No evidence of acute cardiopulmonary pathology. Other findings as noted. Reading Location: [place] [id number] Chest CTA 05/11/25 12:32 IMPRESSION: No evidence of pulmonary embolism. No focal pulmonary abnormality is seen. Questionable tiny layering gallstones along the dependent portion of the gallbladder lumen. Reading Location: [id number] Discharge Plan Triage Chief Complaint: Chest Pain ED Provider: Donald Klein Dx/Rx/DC Orders Prescriptions: No Action magnesium glycinate 100 mg magnesium capsule 400 mg PO DAILY omeprazole 10 MG capsule 10 mg PO DAILY Tylenol Sinus Headache 5-325 mg tablet 1 tab PO Q6H PRN (Reason: sinus symptoms) Lactobacillus acidophilus [NewFlora] 10 billion cell capsule 10,000 mmu cells PO DAILY metoprolol succinate 25 mg tablet extended release 24 hr 12.5 mg PO DAILY Qty: 45 3RF Primary Care Provider: Yari Houston NP Referrals: Yari Houston NP, [facility] [Primary Care Provider, Family Practice] Print Language: Slovak
--- NOTE | 2025-05-11 11:56 | EKG12_ITS ---
Test Reason : CP Blood Pressure : */* mmHG Vent. Rate : 69 BPM Atrial Rate : 69 BPM P-R Int : 196 ms QRS Dur : 98 ms QT Int : 406 ms P-R-T Axes : 37 63 40 degrees QTcB Int : 435 ms Normal sinus rhythm Normal ECG Confirmed by JA STRANGE, PRIMITIVO ([id number]), department editor RENATA MORALES ([id number]) on 05/12/2025 1:24:12 PM Referred By: YUE/JEANA Confirmed By: PRIMITIVO PERES MD
[2025-05-11 12:08] LABS: Hematocrit 36.7 % (37-47); Hemoglobin 12.1 g/dL (12.0-15.0); Immature Granulocytes Count 0.000 X10^3/uL (0.0-0.0); Mean Corp Hgb Conc 33.0 g/dL (32-36); Mean Corpuscular Volume 90.6 fL (81-99); Mean Platelet Vol. 9.3 fl (6.2-12.0); NRBC Flagged by Analyzer 0 % (0-5); Platelet Count 206 K/mm3 (150-450); RBC Distribution Width CV 13.1 % (11.6-14.6); RBC Distribution Width SD 43.3 fl (35.1-43.9); Red Blood Count 4.05 M/mm3 (4.2-5.4); White Blood Count 4.2 K/mm3 (4.4-11.0)
--- NOTE | 2025-05-11 12:08 | RAD_ITS ---
PROCEDURE: CHEST PA AND LATERAL 05/11/2025 REASON FOR EXAM: NEAR SYNCOPE TECHNIQUE: Procedure Code: RADCXR Modality: DX Procedure: CHEST PA AND LATERAL COMPARISON: Frontal chest, 07/04/2021. FINDINGS: The lungs are clear. There is no lobar consolidation or pleural effusion. The heart size is normal. The upper abdominal bowel gas pattern is normal. There is dextroscoliosis of the thoracic spine and levoscoliosis of the lumbar spine. RAD/Chest PA and Lateral IMPRESSION: No evidence of acute cardiopulmonary pathology. Other findings as noted. Reading Location: [place] [id number]
[2025-05-11 12:26] LABS: Troponin T High Sensitivity < 6 ng/L (<=14)
[2025-05-11 12:29] LABS: AST(SGOT) 42 U/L (<=31); Alanine Aminotransfer ALT/SGPT 48 U/L (<=34); Albumin, Serum 4.0 g/dL (3.4-4.8); Alkaline Phosphatase 156 U/L (35-104); Anion Gap 9 (5-15); BUN 13 mg/dL (4-19); BUN/Creat Ratio 23.8 RATIO (10-20); Calcium,Total 9.5 mg/dL (7.6-11.0); Carbon Dioxide 23.6 mmol/L (21.0-32.0); Chloride 108 mmol/L (98-108); Globulin 2.4 g/dL (2.2-4.2); Glucose 100 mg/dL (70-99); Magnesium 2.1 mg/dL (1.5-2.2); Potassium 3.9 mmol/L (3.3-5.1)
[2025-05-11 12:31] LABS: D-Dimer Quantitative (DVT/PE) 0.74 FEU/ug/m (0.27-0.49)
--- NOTE | 2025-05-11 12:32 | CT_ITS ---
PROCEDURE: CTA CHEST W/WO CONTRAST 05/11/2025 REASON FOR EXAM: PE Chest pain. Tachycardia and dizziness. History of sarcoidosis. TECHNIQUE: Procedure Code: [id number] Modality: CT Procedure: CTA CHEST W/WO CONTRAST Multiplanar Sagittal and Coronal images were obtained. 3D post processing was performed CONTRAST: Isovue 370 VOLUME: 100 mL One or more dose reduction techniques were used (e.g., Automated exposure control, adjustment of the mA and/or kV according to patient size, use of iterative reconstruction technique). RADIATION DOSE SUMMARY: CTDlvol: 10.3 mGy DLP: 422.71 mGycm COMPARISON: Prior chest radiograph done earlier in the day. FINDINGS: Hardware: None Lymph nodes: No significant lymph nodes are seen. Heart: The heart is nonenlarged. No coronary artery calcification is seen. Thoracic Aorta: No thoracic aortic aneurysm or dissection. Pulmonary Vessels: No evidence of pulmonary embolism. Lungs and Airways: No focal infiltrate is seen. No mass lesion is present. Pleura: No pleural effusion. Upper Abdomen: Findings suggestive of small layering gallstones along the dependent portion of the gallbladder lumen. Moderate-sized hiatal hernia. Bones: Degenerative changes of the thoracic spine. CT/CTA Chest W/WO Contrast IMPRESSION: No evidence of pulmonary embolism. No focal pulmonary abnormality is seen. Questionable tiny layering gallstones along the dependent portion of the gallbl adder lumen. Reading Location: [id number]
[2025-05-11 14:00] VITALS: BP 113/79; PULSE 73; RESP 14; O2SAT 100; BMI 37.2
[2025-05-11 14:01] VITALS: BP 119/70; BP 130/91; BP 138/74; PULSE 72; PULSE 75; PULSE 83
[2025-05-11] MEDS: 0.9% Normal Saline (1000mL) 1,000 ML 1000 ML IV (14:08)
[2025-05-11 14:14] LABS: Mucous, Urine 0 SEEN /hpf (<or=2+); Red Blood Cells-Urine 0 SEEN /hpf (0-5); Squamous Epithelial Cells - UA 0 SEEN /hpf (5-10)
[2025-05-11 14:16] LABS: Color, Urine Straw (Yellow); Glucose, Dipstick Normal (Normal); Ketone-Dipstick 5 mg/dl (Negative); Leukocyte Esterase-Dipstick Negative /ul (Negative); Nitrite-Dipstick Negative (Negative); Occult Blood-Urine 10 /ul (Negative); Protein-Dipstick Negative (Negative); Specific Gravity, Urine 1.010 (1.002-1.030); Urine Bilirubin Dipstick Negative (Negative)
[2025-05-11 15:00] VITALS: BP 145/70; PULSE 103; RESP 18; O2SAT 100
[2025-05-11 15:43] LABS: Troponin T High Sens 2 HR < 6 ng/L (<=14)
[2025-05-11 16:10] VITALS: BP 117/74; PULSE 77; RESP 12; TEMP 36.6; O2SAT 98
[2025-05-11 16:11] VITALS: BP 117/74; PULSE 77; RESP 12; TEMP 36.6; O2SAT 98
== END 2025-05-11 16:18 | disposition home or self-care (01) ==
PROVIDERS: Emergency Provider Surgery; PCP Registered Nurse; Visit Provider Surgery
DX: R07.9 Chest pain, unspecified (principal); Z90.710 Acquired absence of both cervix and uterus; I47.19 Other supraventricular tachycardia; Z79.899 Other long term (current) drug therapy; R74.01 Elevation of levels of liver transaminase levels
CPT/HCPCS: 71046; 71275; 80053; 81001; 83735; 84484; 85025; 85379; 93005; 96360; 96361; 99285; Q9967; A4216